=== PATIENT | male | born 1970 | race American Indian/Alaskan Native ===

== ENCOUNTER 2016-07-01 21:01 | Emergency (ER) | payer BC ==
[2016-07-02 00:28] VITALS: BP 131/87
--- NOTE | 2016-07-02 03:06 | Emergency Department Report ---
HPI - General Chief Complaint: Extremity Problem,Nontraumatic Time Seen by Provider: 07/02/16 01:58 - HPI HPI: Patient is a 46-year-old male presents to the ED complaining of left knee swelling 3 months. Patient states about 3 months ago he began to feel his knee getting a bit heavy. Patient states minimal pain intermittently localized to the knee. Patient states pain is only felt when he flexes and moves his knee soundly. Patient rates pain about a 5 out of 10. Patient states he has had no trauma fall to the knee. He denies fevers as nausea/vomiting/abdominal pain/loss of sensation/headache/ blurred vision/dizziness or any other problems ED Past Medical Hx - Past Medical History Previous Medical History?: No - Surgical History Past Surgical History?: Yes Additional Surgical History: hernia repair - Social History Smoking Status: Current Every Day Smoker Substance Use Type: None - Medications Home Medications: Home Medications Medication Instructions Recorded Confirmed Last Taken Type Gentamicin 0.3% Ophth Soln 2 drops OP Q4H #1 bottle 10/04/14 Unknown Rx Ibuprofen [Motrin 800 MG tab] 800 mg PO Q8HR PRN #60 tablet 06/05/15 Unknown Rx Cyclobenzaprine [Flexeril] 10 mg PO QHS PRN #30 tablet 07/02/16 Unknown Rx Diclofenac Potassium 50 mg PO BID #30 tablet 07/02/16 Unknown Rx traMADol [Ultram 50 MG tab] 50 mg PO Q6HR PRN #14 tablet 07/02/16 Unknown Rx ED Review of Systems ROS: Stated complaint: LEFT KNEE PAIN Other details as noted in HPI Constitutional: denies: chills, fever Eyes: denies: eye pain, eye discharge, vision change ENT: denies: ear pain, throat pain Respiratory: denies: cough, shortness of breath, wheezing Cardiovascular: denies: chest pain, palpitations Endocrine: no symptoms reported Gastrointestinal: denies: abdominal pain, nausea, diarrhea Genitourinary: denies: urgency, dysuria Musculoskeletal: denies: back pain, joint swelling, arthralgia Skin: denies: rash, lesions Neurological: denies: headache, weakness, paresthesias Psychiatric: denies: anxiety, depression Hematological/Lymphatic: denies: easy bleeding, easy bruising Physical Exam - Physical Exam Vital Signs: Vital Signs 07/02/16 00:24 Temperature 98.0 F Pulse Rate 59 L Respiratory 20 Rate Blood Pressure 131/87 O2 Sat by Pulse 100 Oximetry Physical Exam: GENERAL: Alert and oriented x3, no apparent distress, Normal Gait, atraumatic. HEAD: Head is normocephalic and a-traumatic. NECK: Supple. Non edematous, No carotid bruits. No lymphadenopathy or thyromegaly. No C-spine tenderness LUNGS: Symetrical with respiration, No wheezing, no rales or crackles, CTAB. HEART: S1, S2 present, regular rate and rhythm without murmur, no rubs, no gallops. EXTREMITIES/MUSCULOSKELETAL: No cyanosis, clubbing, rash, lesions or edema. Full ROM bilaterally upper and lower extremities. UE/LE Pulses 2+ bilaterally. LE and UE 5+ strength bilaterally, knee joint is intact, mild swelling of the medial aspect of the knee. Knee is warm and dry, nonerythematous, nontender to palpation Patient able to flex and extend the knee with no problem for range of motion NEUROLOGIC: The patient is cooperative with no focal neurologic deficits. Cranial nerves II through XII are grossly intact. Normal speech. SKIN: Warm and dry, No lesions, No ulceration or induration present. ED Course Vital Signs 07/02/16 00:24 Temperature 98.0 F Pulse Rate 59 L Respiratory 20 Rate Blood Pressure 131/87 O2 Sat by Pulse 100 Oximetry ED Medical Decision Making - Medical Decision Making 46-year-old male presents to ED with chronic left knee pain and swelling ED course: Discussed findings from physical exam patient. Discussed the different tuna traumatic leg in the chronic knee pain. Vital signs are normal patient is in no acute distress Discussed the patient will follow-up with orthopedics. Discussed the patient follow up with primary care physician. Patient understands instructions given. - Differential Diagnosis 1. Septic knee 2. Osteoarthritis 3. Knee strain 4. Arthritis 5. Gout Critical care attestation.: If time is entered above; I have spent that time in minutes in the direct care of this critically ill patient, excluding procedure time. ED Disposition Clinical Impression: Arthritic-like pain Qualifiers: Joint pain location: knee Laterality: left Qualified Code(s): M25.562 - Pain in left knee Knee pain, chronic Qualifiers: Laterality: left Qualified Code(s): M25.562 - Pain in left knee Disposition: DISCHARGED TO HOME OR SELFCARE Is pt being admited?: No Does the pt Need Aspirin: No Condition: Stable Instructions: Knee Effusion (ED), Arthralgia (ED), Knee Exercises (GEN) Prescriptions: Cyclobenzaprine [Flexeril] 10 mg PO QHS PRN #30 tablet PRN Reason: Muscle Spasm Diclofenac Potassium 50 mg PO BID #30 tablet traMADol [Ultram 50 MG tab] 50 mg PO Q6HR PRN #14 tablet PRN Reason: Pain Referrals: AGUSTINA GOEL MD [Staff Physician] - 3-5 Days [facility] [Outside] - 3-5 Days [facility] [Outside] - 3-5 Days STEVEN COLEMAN MD [Staff Physician] - 3-5 Days Forms: Work/School Release Form(ED) Time of Disposition: 03:06
== END 2016-07-02 03:17 | disposition home or self-care (01) ==
LOC: ED 21:01
DX: G89.29 Other chronic pain (principal); M25.562 Pain in left knee; M79.89 Other specified soft tissue disorders; F17.200 Nicotine dependence, unspecified, uncomplicated
CPT/HCPCS: 99282